=== PATIENT | male | born 1940 | race Caucasian/White ===

== ENCOUNTER → 2017-04-27 | Outpatient (CLI) | payer MEDICARE, OTHER ==
[~2017-04-27] MED LIST: ELIQUIS5 MG
== END | disposition disaster alternative care site (69) ==
LOC: GAMB 22:28
DX: I95.9 Hypotension, unspecified (principal); R61 Generalized hyperhidrosis; Z79.899 Other long term (current) drug therapy
CPT/HCPCS: A0422; A0425; A0427; J7030